=== PATIENT | male | born 1945 | race Caucasian/White ===

== ENCOUNTER 2023-04-08 13:57 | Emergency (ER) | payer MEDICARE, SELFPAY ==
[2023-04-08 14:04] VITALS: BP 118/68; PULSE 77; RESP 14; TEMP 36.1; O2SAT 95
--- NOTE | 2023-04-08 15:04 | ED.URI ---
HPI - URI/Sore Throat General Chief Complaint: Upper Respiratory Infection Stated Complaint: sinus infection Time Seen by Provider: 04/08/23 15:04 Source: patient Mode of arrival: ambulatory Limitations: no limitations History of Present Illness HPI Narrative: 77 year old male presrnts to express care with complaints of sinus congestion with drainage and facial sinus pressure for 2 weeks duration with noted cough. Patient reports past history of sinus problems with sinus polyps removed. Patient reports that he has had some thick yellow nasal drainage with some noted blood. He states that he has been taking Tylenol for his discomfort and has been doing sinus rinses without improvement. Patient reports that he has had cough which is worse at night and he has also noted some wheezing. patient denies any acute dyspnea. MD elicited complaint: cough, rhinorrhea, nasal congestion and sinus pain Pertinent past history: sinusitis and other (sinus surgery polyps removed.) Onset (ago): week(s) (2) Pain scale (0-10): 8 Description of mucous: yellow and other (some streaks of blood) Able to tolerate fluids by mouth: Yes Treatments prior to arrival: acetaminophen and other (sinus rinses) Related Data Home Medications Medication Instructions Recorded Confirmed aspirin 81 mg tablet,delayed 81 mg PO DAILY 04/08/23 04/08/23 release (Adult Low Dose Aspirin) finasteride 5 mg tablet 5 mg PO DAILY 04/08/23 04/08/23 metoprolol succinate 50 mg 50 mg PO DAILY 04/08/23 04/08/23 tablet,extended release 24 hr pravastatin 20 mg tablet 20 mg PO DAILY 04/08/23 04/08/23 sertraline 25 mg tablet 25 mg PO DAILY 04/08/23 04/08/23 Allergies Allergy/AdvReac Type Severity Reaction Status Date / Time lisinopril AdvReac Intermediate Cough Verified 04/08/23 14:05 Review of Systems Review of Systems: CONSTITUTIONAL: Denies malaise, chills, sweats, or fever. EYES: Denies visual changes, redness, or discharge. ENT: Reports rhinorrhea, congestion, sinus pain, no otalgia and no sore throat. CARDIOVASCULAR: Denies chest pain, palpitations, or edema. RESPIRATORY: Reports cough with some wheezing,? Denies dyspnea. GASTROINTESTINAL: Denies abdominal pain, nausea, vomiting, diarrhea SKIN: Denies rash or itching. MUSCULOSKELETAL: Denies myalgia. NEUROLOGIC: Reports frontal headache. All systems reviewed & are unremarkable except as noted in HPI and below PMFSH Past Medical History Medical History (Updated 04/09/23 @ 21:19 by Ctae Triana NP) Anxiety and depression History of sinus problem Hyperlipidemia Hypertension War injury due to shrapnel Surgical History Surgical History (Updated 04/09/23 @ 21:13 by Cate Triana NP) History of sinus surgery polyps removed Hx of skin graft Stented coronary artery Family History Family History (Updated 02/28/18 @ 13:37 by DOCTOR UNKNOWN) Father Family history of cardiovascular disease Grandparent Family history of cardiovascular disease Family history of malignant neoplasm Mother Family history of cardiovascular disease Social History Social History (Updated 04/09/23 @ 21:14 by Cate Triana NP) Smoking status: Never smoker Second hand tobacco smoke exposure: No Alcohol intake: current Alcohol use details: social Substance use type: does not use Living arrangements: with family Gender identity (if verbalized by the patient): Male Comments At time of signature, agree with nursing past medical, surgical, social and family history. There is no relevant family history pertinent to the presenting complaint Exam Narrative: GENERAL: Well-appearing, well-nourished, and in no acute distress. HEAD: Normocephalic EYES: PERRLA, conjunctivae clear ENT: Nares clear, turbinates edematous and erythematous, thick yellow discharge, sinus pressure frontal headache. Mucous membranes moist. TM pearly lou with dull light reflex bilaterally; no tragal ten
== END 2023-04-08 15:20 | disposition home or self-care (01) ==
PROVIDERS: Emergency Provider Registered Nurse
DX: J32.9 Chronic sinusitis, unspecified (principal); R05.9 Cough, unspecified; E78.5 Hyperlipidemia, unspecified; I10 Essential (primary) hypertension; F41.9 Anxiety disorder, unspecified; F32.A Depression, unspecified; I25.10 Atherosclerotic heart disease of native coronary artery without angina pectoris; Z95.5 Presence of coronary angioplasty implant and graft; Z79.82 Long term (current) use of aspirin
CPT/HCPCS: 99203; G0463

== ENCOUNTER 2023-06-29 13:24 | Emergency (ER) | payer MEDICARE, SELFPAY ==
--- NOTE | ~2023-06-29 | XR_ITS ---
EXAMINATION: XR chest 2V DATE: 06/29/2023 14:06 INDICATION: Cough. Decreased breath sounds on the right. TECHNIQUE: Frontal and lateral views of the chest were obtained on 3 radiographs. COMPARISON: None. FINDINGS: There is no pneumonia, pleural effusion, or pneumothorax. The heart size is normal. IMPRESSION: 1. No acute cardiopulmonary disease. Reviewed, dictated and finalized at location A. [employer]
[2023-06-29 13:29] VITALS: BP 165/90; PULSE 103; RESP 18; TEMP 37; O2SAT 96
--- NOTE | 2023-06-29 13:39 | ED.GENADULT ---
HPI - General Adult General Chief complaint: Upper Respiratory Infection Stated complaint: flu symptoms Source: patient, RN notes reviewed and old records reviewed Mode of arrival: ambulatory Limitations: no limitations History of Present Illness HPI narrative: 77-year-old male patient presents to [facility] with complaints of cough, congestion, sore throat, myalgia, malaise it started 2-3 days ago. Patient taking Tylenol with no relief. Patient denies chest pain, shortness of breath, weakness, dizziness. Related Data Home Medications Medication Instructions Recorded Confirmed aspirin 81 mg tablet,delayed 81 mg PO DAILY 04/08/23 06/29/23 release (Adult Low Dose Aspirin) finasteride 5 mg tablet 5 mg PO DAILY 04/08/23 04/08/23 metoprolol succinate 50 mg 50 mg PO DAILY 04/08/23 04/08/23 tablet,extended release 24 hr pravastatin 20 mg tablet 20 mg PO DAILY 04/08/23 04/08/23 sertraline 25 mg tablet 25 mg PO DAILY 04/08/23 04/08/23 Allergies Allergy/AdvReac Type Severity Reaction Status Date / Time lisinopril AdvReac Intermediate Cough Verified 06/29/23 13:36 Review of Systems Constitutional: Constitutional: Reports no additional constitutional complaints, Reports body ache(s), Denies chills, Reports fatigue, Denies fever(s) and Denies headache(s) Eyes: Eyes: Reports no additional eye complaints and Denies blurry vision ENT: Reports system reviewed and no additional complaints, except as documented, Denies vertigo, Denies dizziness, Denies ear discharge, Denies otalgia, Denies facial pain, Denies headache(s), Reports nasal congestion, Denies nasal discharge, Denies sinus pain, Denies sinus pressure and Denies sore throat Cardiovascular: Cardiovascular: Reports no additional cardiovascular complaints, Denies chest pain, Denies chest pain at rest, Denies rapid heart rate and Denies dyspnea Respiratory: Respiratory: Reports no additional respiratory complaints, Reports chest congestion, Reports cough, Denies pain on inspiration, Denies pain with cough and Denies dyspnea Gastrointestinal: Gastrointestinal: Denies abdominal pain, Denies diarrhea, Denies nausea and Denies vomiting Integumentary/Breasts: Skin/Breast: Denies rash Neurologic: Reports system reviewed and no additional complaints, except as documented, Denies vertigo, Denies dizziness and Denies headache(s) Endocrine: Endocrine: Denies fatigue PMFSH Past Medical History Medical History Anxiety and depression History of sinus problem Hyperlipidemia Hypertension War injury due to shrapnel Surgical History Surgical History History of sinus surgery polyps removed Hx of skin graft Stented coronary artery Family History Family History Father Family history of cardiovascular disease Grandparent Family history of cardiovascular disease Family history of malignant neoplasm Mother Family history of cardiovascular disease Social History Social History Smoking status: Never smoker Second hand tobacco smoke exposure: No Alcohol intake: current Alcohol use details: social Substance use type: does not use Living arrangements: with family Gender identity (if verbalized by the patient): Male Comments At the time of my signature, I reviewed and agree with the nursing past medical, surgical, social, and family history. There is no relevant family history pertinent to the patient complaint. Exam Const: General: cooperative, healthy appearing, no acute distress and well nourished Nutritional Appearance: well nourished Orientation/consciousness: patient oriented x3 Limitations: no limitations HENMT: Head: normal to inspection and normocephalic Ears: external ears normal, TM's normal bilaterally, mastoids normal and A
== END 2023-06-29 14:29 | disposition home or self-care (01) ==
PROVIDERS: Emergency Provider Registered Nurse
DX: B34.9 Viral infection, unspecified (principal); Z20.822 Contact with and (suspected) exposure to COVID-19; E78.5 Hyperlipidemia, unspecified; I10 Essential (primary) hypertension; Z95.5 Presence of coronary angioplasty implant and graft; F41.9 Anxiety disorder, unspecified; F32.A Depression, unspecified; Z79.82 Long term (current) use of aspirin
CPT/HCPCS: 71046; 87426; 87804; 99213; G0463